=== PATIENT | female | born 1960 | race Caucasian/White ===

== ENCOUNTER 2017-08-24 12:59 | Inpatient (IN) | payer MEDICAID ==
[~2017-08-24] VITALS: Ht 165.1 cm; Wt 121.1 kg
--- NOTE | ~2017-08-24 | OP ---
PATIENT NAME: CONI BIRMINGHAM MEDICAL RECORD: [id number] LOCATION:[facility] ADMISSION DATE:08/24/17 SURGEON: SILAS RICHARDSON MD DATE OF OPERATION: 08/31/2017 PREOPERATIVE DIAGNOSES: 1. Biliary dyskinesia. 2. COPD. 3. Tobacco abuse. 4. Diabetes mellitus. 5. Hypertension. 6. Morbid obesity. POSTOPERATIVE DIAGNOSES: 1. Biliary dyskinesia. 2. COPD. 3. Tobacco abuse. 4. Diabetes mellitus. 5. Hypertension. 6. Morbid obesity. PROCEDURE: Laparoscopic cholecystectomy. SURGEON: Silas Richardson MD [facility]: Debra Gavin APRN REPORT OF PROCEDURE: The patient's abdomen was prepped and draped in sterile fashion. A cutdown was made on the superior aspect of the umbilicus, 0 Vicryls were placed in the fascia bilaterally and the fascia was incised with 15-blade. I then bluntly entered the peritoneal cavity and placed a 12-mm Peter port. Under direct visualization, a 5 mm trocar was placed in the epigastrium and 2 more 5-mm trocars were placed in the right subcostal region. The gallbladder was grasped and elevated. There is no sign of any inflammatory changes. The cystic artery and cystic duct were dissected free and they were clipped proximally and distally and ligated in standard fashion. The gallbladder was taken off the liver bed using electrocautery and placed into the right upper quadrant. Any bleeding from the liver bed was treated with electrocautery. We irrigated out the right upper quadrant and assured there was no sign of any bleeding or bile leakage. At this point, the ports and insufflation were then removed and the gallbladder was taken out through the umbilicus. The umbilical fascia was closed with interrupted 0 Vicryls times 3. The wounds were irrigated out with normal saline and infused with 10 mL of 0.25% Marcaine with epinephrine. The skin incisions were all closed with subcutaneous 5-0 Monocryl and dressed appropriately. COMPLICATIONS: None. CONDITION: Stable. ANESTHESIA: General endotracheal and local. BLOOD LOSS: Minimal. TRANSINT:[id number] Voice Confirmation ID: [id number] DOCUMENT ID: [id number] OPERATIVE REPORT [id number] CONI BIRMINGHAM CHRISTIAN MD at 1228 CC: [id number] DICTATION DATE: 08/31/17 0858 UNDERLAY STITCHER: 08/31/17 1304 DIS IN 08/31/17 [place] [id number] [facility] [place] [address]
[2017-08-24] MEDS ORDERED: BUSPAR 15 MG TA15 MG PO (13:14)
[2017-08-24] MEDS ORDERED: NOVOLOG100 U/M1 (13:15)
[2017-08-24] MEDS ORDERED: PRINIVIL20 MG (13:15)
[2017-08-24] MEDS ORDERED: ZOCOR20 MG PO (13:16)
[2017-08-24] MEDS ORDERED: JANUVIA100 MG PO (13:16)
[2017-08-24] MEDS ORDERED: GLUCOTROL 5 MG T5 MG PO (13:17)
[2017-08-24] MEDS ORDERED: KLONOPIN1 MG PO (13:18)
[2017-08-24 13:56] LABS: BASOPHILS 0.2 % (0-2); HEMATOCRIT 39.3 % (36.0-48.0); HEMOGLOBIN 13.6 g/dL (12-16); IMMATURE GRANULOCYTES 0.4 % (0-5); LYMPHOCYTES 8.4 % (15-50); MCH 29.8 pg (26.0-34.0); MCHC 34.6 g/dL (31.0-37.0); MCV 86.2 fL (80.0-100.0); MEAN PLATELET VOLUME 9.3 fL (7.4-10.4); MONOCYTES 3.6 % (2-11); NEUTROPHILS 86.4 % (40-80); PLATELET COUNT 261 10x3/uL (130-400); RBC 4.56 10x6/uL (4.00-5.40); RDW 13.5 % (11.5-14.5); WBC 9.2 10x3/uL (4.8-10.8)
[2017-08-24 14:15] LABS: ALBUMIN 2.3 g/dL (3.4-5.0); ANION GAP 10.9 mmol/L (8-16); BILIRUBIN - TOTAL 0.21 mg/dL (0.2-1.3); CALCIUM 8.4 mg/dL (8.5-10.1); CARBON DIOXIDE 29.6 mmol/L (21.0-32.0); CREATININE - SERUM 1.1 mg/dL (0.6-1.3); POTASSIUM - SERUM 3.5 mmol/L (3.5-5.1); PROTEIN - SERUM 6.6 g/dL (6.4-8.2)
[2017-08-24 15:32] VITALS: BP 132/66
[2017-08-24 15:50] VITALS: BP 136/89
[2017-08-24 16:37] VITALS: BP 148/75
[2017-08-24 17:20] VITALS: BP 113/86; BMI 44.5
[2017-08-24] MEDS ORDERED: HYDROCODONE-APA1 TAB PO (17:46)
[2017-08-24] MEDS ORDERED: LEVEMIR100 U/M1 SC (17:47)
[2017-08-24 21:01] VITALS: BP 140/68
[2017-08-25 04:00] VITALS: BP 115/70
[2017-08-25 05:41] LABS: BASOPHILS 0.4 % (0-2); EOSINOPHILS 0.1 % (0-7); HEMOGLOBIN 11.2 g/dL (12-16); IMMATURE GRANULOCYTES 0.3 % (0-5); LYMPHOCYTES 18.9 % (15-50); MCH 29.3 pg (26.0-34.0); MCHC 33.9 g/dL (31.0-37.0); MCV 86.4 fL (80.0-100.0); MEAN PLATELET VOLUME 9.2 fL (7.4-10.4); MONOCYTES 7.8 % (2-11); NEUTROPHILS 72.5 % (40-80); PLATELET COUNT 222 10x3/uL (130-400); RBC 3.82 10x6/uL (4.00-5.40); RDW 13.7 % (11.5-14.5); WBC 7.7 10x3/uL (4.8-10.8)
[2017-08-25 06:00] LABS: ANION GAP 9.1 mmol/L (8-16); CALCIUM 7.5 mg/dL (8.5-10.1); CARBON DIOXIDE 26.2 mmol/L (21.0-32.0); MAGNESIUM - SERUM 1.5 mg/dL (1.8-2.4); PHOSPHOROUS 2.6 mg/dL (2.5-4.9); POTASSIUM - SERUM 3.3 mmol/L (3.5-5.1)
[2017-08-25 08:08] VITALS: BP 151/73
[2017-08-25 12:41] VITALS: BP 154/67
[2017-08-25 14:28] LABS: % SATURATION 16 % (15-55); IRON 21 ug/dl (35-150); TOTAL IRON BIND CAPACITY 127 ug/dl (260-445); UNSAT IRON BIND CAPACITY 106 ug/dl (150-375)
[2017-08-25 15:27] VITALS: BP 174/89
[2017-08-25 15:33] VITALS: BMI 44.4
[2017-08-25 20:46] VITALS: BP 145/72
[2017-08-26 00:11] VITALS: BP 147/69
[2017-08-26 04:07] VITALS: BP 154/68
[2017-08-26 05:01] LABS: BASOPHILS 0.3 % (0-2); EOSINOPHILS 2.1 % (0-7); HEMATOCRIT 31.8 % (36.0-48.0); HEMOGLOBIN 10.9 g/dL (12-16); IMMATURE GRANULOCYTES 0.1 % (0-5); LYMPHOCYTES 28.9 % (15-50); MCH 29.5 pg (26.0-34.0); MCHC 34.3 g/dL (31.0-37.0); MCV 86.2 fL (80.0-100.0); MEAN PLATELET VOLUME 9.2 fL (7.4-10.4); MONOCYTES 9.2 % (2-11); NEUTROPHILS 59.4 % (40-80); PLATELET COUNT 233 10x3/uL (130-400); RBC 3.69 10x6/uL (4.00-5.40); RDW 13.9 % (11.5-14.5); WBC 7.3 10x3/uL (4.8-10.8)
[2017-08-26 05:15] LABS: CALCIUM 7.5 mg/dL (8.5-10.1); CARBON DIOXIDE 26.4 mmol/L (21.0-32.0); CHLORIDE - SERUM 108 mmol/L (98-107); CREATININE - SERUM 0.8 mg/dL (0.6-1.3); SODIUM 141 mmol/L (136-145); UREA NITROGEN 14 mg/dL (7-18); eGFR NON AFRICAN AMERICAN 79 mL/min (90-120)
[2017-08-26 05:17] LABS: CALC OSMOLALITY 280 mosm/kg (275-300); GLUCOSE 85 mg/dL (74-106); POTASSIUM - SERUM 2.9 mmol/L (3.5-5.1)
[2017-08-26 08:01] VITALS: BP 148/96
[2017-08-26 10:21] LABS: FOLATE (FOLIC ACID) - SERUM >20.0 ng/mL (>3.0)
[2017-08-26 12:33] VITALS: BP 152/80
[2017-08-26 15:57] VITALS: BP 171/56
[2017-08-26 21:20] VITALS: BP 123/79
[2017-08-26 22:12] LABS: APPEARANCE CLEAR (CLEAR); BILIRUBIN NEGATIVE (NEGATIVE); COLOR YELLOW (YELLOW); GLUCOSE NEGATIVE (NEGATIVE); KETONE NEGATIVE (NEGATIVE); NITRITE NEGATIVE (NEGATIVE); PROTEIN 1+ mg/dL (NEGATIVE); UROBILINOGEN NORMAL (NORMAL)
[2017-08-26 22:15] LABS: EPITHELIAL CELLS 0-5 /hpf (0-5); RED CELLS - URINE 0-5 /hpf (0-5); WHITE CELLS - URINE 0-5 /hpf (0-5)
[2017-08-26 22:16] LABS: BACTERIA FEW /hpf (NONE SEEN)
[2017-08-27 00:38] VITALS: BP 117/67
[2017-08-27 05:04] VITALS: BP 131/82
[2017-08-27 05:11] LABS: BASOPHILS 0.3 % (0-2); EOSINOPHILS 3.2 % (0-7); HEMATOCRIT 33.8 % (36.0-48.0); HEMOGLOBIN 11.4 g/dL (12-16); IMMATURE GRANULOCYTES 0.3 % (0-5); LYMPHOCYTES 27.6 % (15-50); MCH 29.1 pg (26.0-34.0); MCHC 33.7 g/dL (31.0-37.0); MCV 86.2 fL (80.0-100.0); MEAN PLATELET VOLUME 9.1 fL (7.4-10.4); MONOCYTES 9.3 % (2-11); NEUTROPHILS 59.3 % (40-80); PLATELET COUNT 253 10x3/uL (130-400); RBC 3.92 10x6/uL (4.00-5.40); RDW 13.8 % (11.5-14.5); WBC 7.1 10x3/uL (4.8-10.8)
[2017-08-27 05:32] LABS: ANION GAP 9.8 mmol/L (8-16); CALCIUM 7.6 mg/dL (8.5-10.1); CARBON DIOXIDE 26.3 mmol/L (21.0-32.0); POTASSIUM - SERUM 3.1 mmol/L (3.5-5.1)
[2017-08-27 05:33] LABS: CREATININE - SERUM 1.1 mg/dL (0.6-1.3)
[2017-08-27 13:00] VITALS: BP 159/87
[2017-08-27 16:08] VITALS: BP 128/65
[2017-08-27 20:00] VITALS: BP 159/79
[2017-08-28] VITALS: BP 172/79
[2017-08-28 04:00] VITALS: BP 151/85
[2017-08-28 06:04] LABS: BASOPHILS 0.3 % (0-2); EOSINOPHILS 3.5 % (0-7); HEMATOCRIT 34.4 % (36.0-48.0); HEMOGLOBIN 11.9 g/dL (12-16); IMMATURE GRANULOCYTES 0.1 % (0-5); LYMPHOCYTES 26.1 % (15-50); MCH 29.6 pg (26.0-34.0); MCHC 34.6 g/dL (31.0-37.0); MCV 85.6 fL (80.0-100.0); MEAN PLATELET VOLUME 8.9 fL (7.4-10.4); PLATELET COUNT 260 10x3/uL (130-400); RBC 4.02 10x6/uL (4.00-5.40); WBC 7.5 10x3/uL (4.8-10.8)
[2017-08-28 06:17] LABS: ANION GAP 10.4 mmol/L (8-16); CALCIUM 8.2 mg/dL (8.5-10.1); CARBON DIOXIDE 27.5 mmol/L (21.0-32.0); CREATININE - SERUM 1.1 mg/dL (0.6-1.3); POTASSIUM - SERUM 3.9 mmol/L (3.5-5.1)
[2017-08-28 10:15] VITALS: BP 151/80
[2017-08-28 17:06] VITALS: BP 167/77
[2017-08-28 20:49] VITALS: BP 171/99
[2017-08-29 04:17] VITALS: BP 185/84
[2017-08-29 07:01] LABS: BASOPHILS 0.6 % (0-2); EOSINOPHILS 2.3 % (0-7); HEMATOCRIT 31.6 % (36.0-48.0); HEMOGLOBIN 10.7 g/dL (12-16); IMMATURE GRANULOCYTES 0.6 % (0-5); LYMPHOCYTES 23.4 % (15-50); MCH 28.9 pg (26.0-34.0); MCHC 33.9 g/dL (31.0-37.0); MCV 85.4 fL (80.0-100.0); MEAN PLATELET VOLUME 8.9 fL (7.4-10.4); MONOCYTES 6.9 % (2-11); NEUTROPHILS 66.2 % (40-80); PLATELET COUNT 267 10x3/uL (130-400); RDW 13.8 % (11.5-14.5); WBC 8.4 10x3/uL (4.8-10.8)
[2017-08-29 07:10] LABS: ANION GAP 10.5 mmol/L (8-16); CALCIUM 7.6 mg/dL (8.5-10.1); CARBON DIOXIDE 26.4 mmol/L (21.0-32.0); POTASSIUM - SERUM 3.9 mmol/L (3.5-5.1)
[2017-08-29 09:09] VITALS: BP 153/80
[2017-08-29 12:27] VITALS: Ht 165.1 cm; Wt 121.1 kg
[2017-08-29 12:31] VITALS: BP 159/85
[2017-08-29 19:34] VITALS: BP 188/112
[2017-08-29 20:28] VITALS: BP 191/87
[2017-08-30 00:58] VITALS: BP 155/82
[2017-08-30 04:05] VITALS: BP 158/72
[2017-08-30 05:51] LABS: BASOPHILS 0.2 % (0-2); EOSINOPHILS 2.3 % (0-7); HEMATOCRIT 33.3 % (36.0-48.0); HEMOGLOBIN 11.4 g/dL (12-16); IMMATURE GRANULOCYTES 0.5 % (0-5); LYMPHOCYTES 23.5 % (15-50); MCH 29.2 pg (26.0-34.0); MCHC 34.2 g/dL (31.0-37.0); MCV 85.2 fL (80.0-100.0); MEAN PLATELET VOLUME 8.5 fL (7.4-10.4); MONOCYTES 7.5 % (2-11); PLATELET COUNT 291 10x3/uL (130-400); RBC 3.91 10x6/uL (4.00-5.40); RDW 13.8 % (11.5-14.5); WBC 9.5 10x3/uL (4.8-10.8)
[2017-08-30 06:14] LABS: ANION GAP 13.7 mmol/L (8-16); CALCIUM 8.4 mg/dL (8.5-10.1); CARBON DIOXIDE 24.4 mmol/L (21.0-32.0); POTASSIUM - SERUM 4.1 mmol/L (3.5-5.1)
[2017-08-30 08:25] VITALS: BP 192/97
[2017-08-30 13:22] VITALS: BP 152/78
[2017-08-30 16:55] VITALS: BP 186/92
[2017-08-30 20:00] VITALS: BP 180/91
[2017-08-31 00:18] VITALS: BP 193/88
[2017-08-31 04:10] VITALS: BP 148/82
[2017-08-31 06:18] LABS: BASOPHILS 0.3 % (0-2); EOSINOPHILS 1.8 % (0-7); HEMATOCRIT 30.9 % (36.0-48.0); HEMOGLOBIN 10.6 g/dL (12-16); IMMATURE GRANULOCYTES 0.6 % (0-5); LYMPHOCYTES 15.8 % (15-50); MCH 29.3 pg (26.0-34.0); MCHC 34.3 g/dL (31.0-37.0); MCV 85.4 fL (80.0-100.0); MEAN PLATELET VOLUME 8.9 fL (7.4-10.4); MONOCYTES 8.2 % (2-11); NEUTROPHILS 73.3 % (40-80); PLATELET COUNT 284 10x3/uL (130-400); RBC 3.62 10x6/uL (4.00-5.40); RDW 13.7 % (11.5-14.5); WBC 10.6 10x3/uL (4.8-10.8)
[2017-08-31 06:38] LABS: ANION GAP 13.3 mmol/L (8-16); CALCIUM 8.1 mg/dL (8.5-10.1); CREATININE - SERUM 1.1 mg/dL (0.6-1.3); POTASSIUM - SERUM 4.3 mmol/L (3.5-5.1)
[2017-08-31 10:04] VITALS: BP 153/80
== END 2017-08-31 14:08 | disposition home or self-care (01) | DRG 417 ==
LOC: D.ER 12:59 → D.MS 16:29
PROVIDERS: Family Medicine; Internal Medicine Nephrology; Surgery
PROC: 0FT44ZZ Resection of Gallbladder, Percutaneous Endoscopic Approach (ICD-10-PCS; principal; 2017-08-31 08:00)
DX: K80.10 Calculus of gallbladder with chronic cholecystitis without obstruction (principal); J18.9 Pneumonia, unspecified organism; F17.203 Nicotine dependence unspecified, with withdrawal; Z68.41 Body mass index [BMI] 40.0-44.9, adult; K82.8 Other specified diseases of gallbladder; K52.9 Noninfective gastroenteritis and colitis, unspecified; I10 Essential (primary) hypertension; E11.9 Type 2 diabetes mellitus without complications; J44.9 Chronic obstructive pulmonary disease, unspecified; E83.42 Hypomagnesemia; E87.6 Hypokalemia; E66.01 Morbid (severe) obesity due to excess calories

== ENCOUNTER → 2017-11-19 14:10 | Outpatient (CLI) | payer MEDICAID ==
[2017-08-29 12:27] VITALS: BMI 44.4
[~2017-11-19 14:10] MED LIST: BUSPAR 15 MG TA15 MG PO; GLUCOTROL 5 MG T5 MG PO; HYDROCODONE-APA1 TAB PO; JANUVIA100 MG PO; KLONOPIN1 MG PO; LEVEMIR100 U/M1 SC; NOVOLOG100 U/M1; PRINIVIL20 MG; ZOCOR20 MG PO
== END | disposition home or self-care (01) ==
LOC: D.CT 14:10
DX: R10.9 Unspecified abdominal pain (principal)